=== PATIENT | male | born 1945 | race Hispanic/Latino ===

== ENCOUNTER → 2018-02-17 | Outpatient (CLI) | payer OTHER ==
[~2018-02-17] MED LIST: ASPI-1005 PO; ATOR20TA65 PO; LISI2.5T2 PO; METO25 PO; PRAS10TA6 PO; TAMS0.4C32 PO
[2018-02-17 11:18] LABS: CREATININE 1.1 mg/dL (0.5-1.5)
== END | disposition home or self-care (01) ==
LOC: LAB 10:08
PROVIDERS: ATTEND Urology
DX: N13.39 Other hydronephrosis (principal)
CPT/HCPCS: 36415; 82565; 84520

== ENCOUNTER → 2018-02-18 | Outpatient (CLI) | payer OTHER ==
[~2018-02-18] MED LIST changes: +IOPAMIDOL-370 100 ML VIAL IV ONE
== END | disposition home or self-care (01) ==
LOC: RAH 09:50
PROVIDERS: ATTEND Urology
DX: N13.30 Unspecified hydronephrosis (principal); R31.29 Other microscopic hematuria
CPT/HCPCS: 74400; Q9967

== ENCOUNTER 2018-12-17 09:38 | Inpatient (IN) | payer MEDICARE, OTHER | END 2018-12-19 19:30 | disposition home or self-care (01) | LOC: EDH 09:38 → EDHIP 13:00 → 2AH 22:47 | DX: I48.3 Typical atrial flutter (principal); D68.59 Other primary thrombophilia; I48.0 Paroxysmal atrial fibrillation; I10 Essential (primary) hypertension; I45.2 Bifascicular block ==

== ENCOUNTER → 2019-03-17 | Outpatient (CLI) | payer MEDICARE, OTHER ==
[~2019-03-17] MED LIST changes: +ALBUTEROL SULFATE 0.083% 2.5 MG/3 ML INH IH ONE; -ATOR20TA65 PO; +ATOR40TA69 PO; -IOPAMIDOL-370 100 ML VIAL IV ONE; -LISI2.5T2 PO; -METO25 PO; -PRAS10TA6 PO
== END | disposition home or self-care (01) ==
LOC: RESP 10:11
PROVIDERS: ATTEND Internal Medicine Cardiovascular Disease
DX: J98.8 Other specified respiratory disorders (principal); Z79.01 Long term (current) use of anticoagulants
CPT/HCPCS: 94060; 94727; 94729

== ENCOUNTER → 2020-11-28 | Outpatient (CLI) | payer MEDICARE ==
[~2020-11-28] MED LIST changes: -ALBUTEROL SULFATE 0.083% 2.5 MG/3 ML INH IH ONE
== END | disposition home or self-care (01) ==
LOC: RAH 10:37
PROVIDERS: ATTEND Family Medicine
DX: T17.308A Unspecified foreign body in larynx causing other injury, initial encounter (principal); R13.10 Dysphagia, unspecified; X58.XXXA Exposure to other specified factors, initial encounter; Y92.89 Other specified places as the place of occurrence of the external cause; Y93.89 Activity, other specified; Y99.8 Other external cause status
CPT/HCPCS: 74230; 92611

== ENCOUNTER → 2021-01-04 | Outpatient (CLI) | payer MEDICARE | END | disposition home or self-care (01) | LOC: SHCH 15:30 | PROVIDERS: ATTEND Internal Medicine Cardiovascular Disease | DX: I65.23 Occlusion and stenosis of bilateral carotid arteries (principal); R09.89 Other specified symptoms and signs involving the circulatory and respiratory systems | CPT/HCPCS: 93880 ==